=== PATIENT | male | born 1990 | race Hispanic/Latino ===

== ENCOUNTER 2018-01-22 18:00 | Emergency (ER) | payer OTHER ==
[~2018-01-22] VITALS: Ht 167.6 cm; Wt 73.6 kg
[~2018-01-22 18:00] MED LIST: CEPHALEXIN500 MG PO; DICLOFENAC SODI75 MG PO; NORCO1 TA1 PO
[2018-01-22 19:20] LABS: HEMATOCRIT 43.8 % (39.0-50.0); IMMATURE GRANULOCYTES 0.2 % (0.0-1.0); MEAN CELL VOLUME 91.3 fL CALC (80.0-100.0); MEAN CORPUSCULAR HGB 31.3 pG CALC (26.0-32.0); MEAN CORPUSCULAR HGB CONC 34.2 g/L CALC (32.0-36.0); NEUT# 4.55 thou/uL (1.82-7.42); RED BLOOD COUNT 4.8 mill/uL (4.70-6.10); RED CELL DISTRI WIDTH 12.3 % (11.5-15.5)
[2018-01-22 19:38] LABS: ALBUMIN 4.7 g/dL (3.2-5.0); ALKALINE PHOSPHATASE 99 u/l (38-126); ANION GAP 20 (6-22 (CALC)); BILIRUBIN, TOTAL 0.2 mg/dL (0.0-1.4); BUN 15 mg/dL (9-20); BUN/CREATININE RATIO 18 (12-20 (CALC)); CARBON DIOXIDE 25 mmol/l (22-30); CHLORIDE 103 mmol/l (95-108); CREATININE 0.9 mg/dL (0.7-1.3); GFR > 60 ML/MIN (>=60 (CALC)); GFR FOR AFR.AMER. > 60 ML/MIN (>=60 (CALC)); POTASSIUM 4.1 mmol/l (3.5-5.1); SGOT/AST 31 u/l (17-59); SGPT/ALT 48 u/l (21-72); SODIUM 144 mmol/l (137-146); TOTAL PROTEIN 7.6 g/dL (6.3-8.2)
[2018-01-22 19:53] VITALS: BP 122/70
== END 2018-01-22 19:53 | disposition home or self-care (01) | DRG 948 ==
LOC: ED 18:00
PROVIDERS: Emergency Medicine
DX: R53.1 Weakness (principal); E16.2 Hypoglycemia, unspecified

== ENCOUNTER 2019-02-11 19:51 | Emergency (ER) | payer SELFPAY ==
[~2019-02-11] VITALS: Ht 167.6 cm; Wt 76.0 kg
[2019-02-11] MEDS ORDERED: CODEINE/GUAIFEN1 SOL PO (21:21)
[2019-02-11] MEDS ORDERED: AMOXICILLIN500 MG PO (21:21)
[2019-02-11 22:03] VITALS: BP 134/77
== END 2019-02-11 22:09 | disposition home or self-care (01) | DRG 153 ==
LOC: ED 19:51
DX: J06.9 Acute upper respiratory infection, unspecified (principal)